=== PATIENT | female | born 1975 | race Caucasian/White ===

== ENCOUNTER 2017-08-10 10:42 | Emergency (ER) | payer BC ==
[2017-08-10 11:17] VITALS: BP 128/71
--- NOTE | 2017-08-10 11:44 | UC ---
Back Pain HPI - HPI Summary HPI Summary: 42 YEAR OLD FEMALE PRESENTS WITH COMPLAINS SEVERE INTRACTABLE BACK PAIN. - History of Current Complaint Chief Complaint: UCBackPain Stated Complaint: BACK PAIN Time Seen by Provider: 08/10/17 11:34 Hx Obtained From: Patient Hx Last Menstrual Period: OVER A YEAR AGO, HAD UTERINE ABLATION Onset/Duration: Sudden Onset Severity Initially: Moderate Severity Currently: Moderate Pain Scale Used: 0-10 Numeric - 7 - Allergies/Home Medications Allergies/Adverse Reactions: Allergies Allergy/AdvReac Type Severity Reaction Status Date / Time Serotonin Reuptake Inhibitors Allergy Fatigue Verified 08/10/17 11:10 Home Medications: Home Medications Cyclobenzaprine TAB* [Flexeril TAB*] 5 mg PO TID PRN 08/10/17 [History Confirmed 08/10/17] Fluticasone Furoate-Vilanterol [Breo Ellipta 200-25 Mcg/INH] 08/10/17 [History] Ibuprofen TAB* [Advil TAB*] 600 mg PO PRN 08/10/17 [History] PMH/Surg Hx/FS Hx/Imm Hx Previously Healthy: Yes - Surgical History Surgical History: None Surgery Procedure, Year, and Place: 1979 T&A, 97 & 00, 2002 L5-S1 discectomy, 09/01 uterine ablation, hysterectomy 01/2017 - Social History Alcohol Use: Rare Substance Use Type: None Smoking Status (MU): Never Smoked Tobacco Type: Cigarettes Amount Used/How Often: quit as of summer Have You Smoked in the Last Year: Yes Review of Systems Constitutional: Negative Skin: Negative Eyes: Negative ENT: Negative Respiratory: Negative Cardiovascular: Negative Gastrointestinal: Negative Genitourinary: Negative Motor: Negative Neurovascular: Negative Musculoskeletal: Other: - LOWER BACK PAIN Neurological: Negative Psychological: Negative All Other Systems Reviewed And Are Negative: Yes Physical Exam Triage Information Reviewed: Yes Vital Signs: Initial Vital Signs Temp 37.0 C 08/10/17 11:12 Pulse 72 08/10/17 11:12 Resp 18 08/10/17 11:12 BP 128/71 08/10/17 11:12 Pulse Ox 100 08/10/17 11:12 Vital Signs Reviewed: Yes Eye Exam: Normal ENT Exam: Normal Dental Exam: Normal Neck exam: Normal Neck: Positive: 1 Respiratory Exam: Normal Cardiovascular Exam: Normal Abdominal Exam: Normal Musculoskeletal: Positive: Other: - LOWER BACK PAIN POINT TENDERNESS L4, L5 Neurological Exam: Normal Psychological Exam: Normal Skin Exam: Normal Back Pain Course/Dx - Differential Dx/Diagnosis Provider Diagnoses: INTRACTABLE LOWER BACK PAIN Discharge - Discharge Plan Condition: Stable Disposition: OTHER Discharge Disposition Comment: PATIENT SUGGESTED TO GO TO THE ER. Patient Education Materials: Low Back Strain (ED), Acute Low Back Pain (ED) Referrals: Emma Alvarez MD [Primary Care Provider] - Additional Instructions: patient suggested to go to ER for intractable back pain.
== END 2017-08-10 12:15 ==
LOC: UCEAST 10:42
DX: M54.9 Dorsalgia, unspecified (principal)
CPT/HCPCS: 99211; G0463

== ENCOUNTER 2017-08-10 12:12 | Emergency (ER) | payer BC ==
[2017-08-10] MEDS ORDERED: Ketorolac INJ* 30 MG/ML 1 ML VIAL IV ONE (13:13)
--- NOTE | 2017-08-10 14:27 | RAD ---
INDICATION: Back and pelvic pain COMPARISON: MRI lumbar spine dated December 08, 2015 TECHNIQUE: Contiguous axial sections were obtained beginning lower thoracic vertebra and continuing through the sacrum. Images were reconstructed in the sagittal and coronal planes. FINDINGS: The vertebra are in normal alignment. No fracture is seen. There is no hyperdense material in the thecal sac to indicate acute hemorrhage. Degenerative changes include loss of intervertebral disc height at L5/S1 where there is endplate sclerosis. There is mild disc protrusion at L3/L4, L4/L5 and L5/S1 that appears to combine with facet arthropathy and thickening of the ligamentum flavum to cause mild degrees of central canal or neural foraminal stenosis. The visualized soft tissues do not exhibit any acute abnormalities. IMPRESSION: Degenerative changes of the lower lumbar spine as described above without acute fracture or dislocation. The degenerative appearance appears worse when compared to the December 08, 2015 MRI lumbar spine. Superior characterization of the lumbar spine can be made with MRI on a nonemergent basis if clinically warranted.
--- NOTE | 2017-08-10 14:51 | ED ---
Dylon Ng Rebecca, scribed for Ashli Calle MD on 08/10/17 at 1306 . Back Pain - HPI Summary HPI Summary: Pt is a 42 y/o F who presents to ED referred from [facility] c/o lumbar back pain. Pt reports she has had multiple back issues, having surgery about 15 years ago. About 6 months ago she had a hysterectomy and has been having "pelvic/coccyx pain" since then. About 1 week ago, the pain worsened and spread to her "sacral/ iliac" region. States that the pain is primarily in the lumbar back with radiation to the pelvis and LLE. Pain is currently moderate, ranked 6/10. Notes intermittent shooting pain. Sx aggravated by sitting and standing up, ranked 10/ 10 with either activity, alleviated by laying down and Cyclobenzaprine. Additionally noted L foot numbness that began this morning. - History of Current Complaint Chief Complaint: EDBackInjuryPain Stated Complaint: BACK/PELVIC PAIN Time Seen by Provider: 08/10/17 12:29 Hx Obtained From: Patient Hx Last Menstrual Period: OVER A YEAR AGO, HAD UTERINE ABLATION Onset/Duration: Still Present, Worse Since - 1 week ago Onset/Duration: Still Present Back Pain Location: Is Discrete @ - Lumbar back, Radiates To - pelvis and LLE Severity Currently: Moderate Pain Intensity: 6 Pain Scale Used: 0-10 Numeric Character: Sharp - Occasoinal Aggravating Symptom(s): Other - Sitting and standing up Alleviating Symptom(s): Other - Laying down, cyclobenzaprine Associated Signs And Symptoms: Positive: Numbness - L foot numbness - Allergies/Home Medications Allergies/Adverse Reactions: Allergies Allergy/AdvReac Type Severity Reaction Status Date / Time Serotonin Reuptake Inhibitors Allergy Fatigue Verified 08/10/17 11:10 PMH/Surg Hx/FS Hx/Imm Hx Endocrine/Hematology History: Denies: Hx Diabetes, Hx Thyroid Disease Cardiovascular History: Reports: Other Cardiovascular Problems/Disorders - HX OF PVC'S Denies: Hx Congestive Heart Failure, Hx Deep Vein Thrombosis, Hx Hypertension , Hx Myocardial Infarction, Hx Pacemaker/ICD Respiratory History: Reports: Hx Asthma, Other Respiratory Problems/Disorders - KNOWN MOLD EXPOSURE Denies: Hx Chronic Obstructive Pulmonary Disease (COPD), Hx Lung Cancer, Hx Pneumonia, Hx Pulmonary Embolism GI History: Denies: Hx Gall Bladder Disease, Hx Gastrointestinal Bleed, Hx Ulcer, Hx Urosepsis History: Denies: Hx Dialysis, Hx Kidney Stones, Hx Renal Disease Musculoskeletal History: Reports: Hx Back Problems - s/p surgery 2002 L3-S1 discectomy Sensory History: Denies: Hx Hearing Aid Neurological History: Denies: Hx Dementia, Hx Migraine, Hx Seizures, Hx Transient Ischemic Attacks (TIA) Psychiatric History: Reports: Hx Anxiety, Hx Depression Denies: Hx Panic Disorder - Cancer History Hx Chemotherapy: No Hx Radiation Therapy: No - Surgical History Surgery Procedure, Year, and Place: 1979 T&A, 97 & 00, 2002 L5-S1 discectomy, 09/01 uterine ablation, hysterectomy 01/2017 Infectious Disease History: No Infectious Disease History: Reports: Hx Shingles - AGE 13 Denies: History Other Infectious Disease, Traveled Outside the [place] in Last 30 Days - Family History Known Family History: Negative: Diabetes - Social History Alcohol Use: Rare Substance Use Type: Reports: None Smoking Status (MU): Never Smoked Tobacco Type: Cigarettes Amount Used/How Often: quit as of summer Have You Smoked in the Last Year: Yes Review of Systems Negative: Fever Positive: Arthralgia - Lumbar back pain with radiation to the pelvis and LLE Positive: Numbness - L foot numbness All Other Systems Reviewed And Are Negative: Yes Physical Exam - Summary Physical Exam Summary: General: Well appearing, no pain distress Skin: Warm, Skin Color Reflects Adequate Perfusion, Dry Eyes: EOMI, DENTON ENT: Pharynx normal, TMs normal Neck: Supple, nontender Respiratory: CTA, breath sounds present, no rhonchi, no wheezes, no rales Cardiovascular: RRR, no murmur, no rub, no gallop Abdomen: Soft, nontender, Non-distended, no guarding, no rebound Bowel: Present Musculoskeletal: GLENN, No edema, Tender at L4-L5, over the glute on the left side, normal great toe raise bilaterally Neuro: Sensory/motor intact, A&Ox3, CN intact 2-12 Psych: Affect/mood appropriate Triage Information Reviewed: Yes Vital Signs On Initial Exam: Initial Vitals Temp Pulse Resp BP Pulse Ox 98.2 F 79 15 126/79 99 08/10/17 12:15 08/10/17 12:15 08/10/17 12:15 08/10/17 12:15 08/10/17 12:15 Vital Signs Reviewed: Yes - [place] Coma Scale Coma Scale Total: 15 Diagnostics - Vital Signs Vital Signs Temp Pulse Resp BP Pulse Ox 08/10/17 12:15 98.2 F 79 15 126/79 99 - Laboratory Lab Statement: Any lab studies that have been ordered have been reviewed, and results considered in the medical decision making process. - CT L-Spine CT CT Interpretation: Positive (See Comments) - Degenerative changes of the lower lumbar spine as described above without acute fracture or dislocation. The degenerative appearance appears worse when compared to the December 08, 2015 MRI lumbar spine. Superior characterization of the lumbar spine can be made with MRI on a nonemergent basis if clinically warranted. ED physician reviewed radiology report and agrees. CT Interpretation Completed By: Radiologist Back Pain Course/Dx - Course Course Of Treatment: 42 yo female with previous history of lumbar spine issues now with parasthesias on left lateral distal foot dorsum and over ball of foot with increased pain over the last few days. Pt's ct shows central canal stenosis she does not want narcotics, her neuro exam is normal she is willing to try a medrol dose pack for the inflammation and will f/u with pmd - Diagnoses Provider Diagnoses: Spinal stenosis Discharge - Discharge Plan Condition: Stable Disposition: HOME Prescriptions: Methylprednisolone [Medrol Dosepak 4 MG*] 0 mg PO .SEE PASCALE INSTRUCTION #1 tab Naproxen [Naprosyn 500 mg] 500 mg PO BID PRN #10 tab PRN Reason: Pain Tramadol 50 MG # 6 TAB PREPAK 50 mg PO Q4HR PRN #6 tab MDD 6 PRN Reason: Pain Patient Education Materials: Lumbar Spinal Stenosis (ED) Referrals: Emma Alvarez MD [Primary Care Provider] - 3 Days The documentation as recorded by the Dylon dickens Rebecca accurately reflects the service I personally performed and the decisions made by me, Ashli Calle MD.
[2017-08-10] MEDS ORDERED: Ketorolac INJ* 60 MG/2 ML VIAL ONE (14:59)
[2017-08-10] MEDS ORDERED: Ketorolac INJ* 60 MG/2 ML VIAL IM ONE (15:02)
[2017-08-10 15:12] VITALS: BP 96/62
== END 2017-08-10 15:11 | disposition home or self-care (01) ==
LOC: ED 12:12
DX: M48.00 Spinal stenosis, site unspecified (principal); M54.5 Low back pain; R20.0 Anesthesia of skin
CPT/HCPCS: 72131; 96372; 96374; 99282; J1885

== ENCOUNTER 2019-03-13 06:36 | Emergency (ER) | payer BC ==
[2019-03-13] MEDS ORDERED: NS 0.9% 1000 ML** 1,000 ML IV ONE (06:55)
[2019-03-13] MEDS ORDERED: Ondansetron INJ* 2 MG/ML VIAL IV ONE (06:55)
[2019-03-13] MEDS ORDERED: Meclizine TAB* 12.5 MG PO ONE ×2 (06:55→11:41)
--- NOTE | 2019-03-13 06:58 | ED ---
Dizziness - HPI Summary HPI Summary: 43-year-old female presents with the vertigo since this morning at 4. States it is intermittent. She states that she once the room starts spinning. she is not able to ambulate straighten. she vomits after the vertigo. She has a dull pressure in her head. She has a history of vertigo. 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 She is not able to lay flat due to the symptoms. She states that symptoms worsen with movement. She still she get occasionally blurry vision that has been coming going. She denies any diarrhea. No bowel pain. No chest pain shortness of breath. no chest pain or sob. no fevers. Has history asthma. she states she is leaning towards the left - History Of Current Complaint Chief Complaint: EDDizziness Stated Complaint: VERTIGO/VOMITING PER PT Time Seen by Provider: 03/13/19 06:47 - Allergies/Home Medications Allergies/Adverse Reactions: Allergies Allergy/AdvReac Type Severity Reaction Status Date / Time latex Allergy Itching Verified 03/13/19 06:40 Serotonin 5HT-3 Antagonists Allergy Fatigue Verified 03/13/19 08:34 ANESTHESIA Allergy Vomiting Uncoded 03/13/19 06:40 Home Medications: Home Medications DULoxetine DR CAP* [Cymbalta CAP*] 20 mg PO DAILY 03/13/19 [History Confirmed ] Fluticasone/Vilanterol MDI(NF) [Breo Ellipta MDI 200/25(NF)] 1 puff INH BID [History Confirmed 03/13/19] Melatonin (NF) 3 mg PO BEDTIME PRN 03/13/19 [History Confirmed 03/13/19] Naproxen TAB* [Naprosyn 250 mg TAB*] 500 mg PO BID PRN 03/13/19 [History Confirmed 03/13/19] PMH/Surg Hx/FS Hx/Imm Hx Endocrine/Hematology History: Denies: Hx Diabetes, Hx Thyroid Disease Cardiovascular History: Reports: Other Cardiovascular Problems/Disorders - HX OF PVC'S Denies: Hx Congestive Heart Failure, Hx Deep Vein Thrombosis, Hx Hypertension , Hx Myocardial Infarction, Hx Pacemaker/ICD Respiratory History: Reports: Hx Asthma, Other Respiratory Problems/Disorders - KNOWN MOLD EXPOSURE Denies: Hx Chronic Obstructive Pulmonary Disease (COPD), Hx Lung Cancer, Hx Pneumonia, Hx Pulmonary Embolism GI History: Denies: Hx Gall Bladder Disease, Hx Gastrointestinal Bleed, Hx Ulcer, Hx Urosepsis History: Denies: Hx Dialysis, Hx Kidney Stones, Hx Renal Disease Musculoskeletal History: Reports: Hx Back Problems - s/p surgery 2002 L3-S1 discectomy Sensory History: Denies: Hx Hearing Aid Neurological History: Denies: Hx Dementia, Hx Migraine, Hx Seizures, Hx Transient Ischemic Attacks (TIA) Psychiatric History: Reports: Hx Anxiety, Hx Depression, Hx Panic Disorder - Cancer History Hx Chemotherapy: No Hx Radiation Therapy: No - Surgical History Surgery Procedure, Year, and Place: 1979 T&A, 97 & 00, 2002 L5-S1 discectomy, 09/01 uterine ablation, hysterectomy 01/2017 Infectious Disease History: No Infectious Disease History: Reports: Hx Shingles - AGE 13 Denies: History Other Infectious Disease, Traveled Outside the [place] in Last 30 Days - Family History Known Family History: Negative: Diabetes - Social History Alcohol Use: Occasionally Substance Use Type: Reports: None Smoking Status (MU): Former Smoker Type: Cigarettes Amount Used/How Often: quit as of summer Have You Smoked in the Last Year: Yes Review of Systems Negative: Fever Negative: Chest Pain Negative: Shortness Of Breath Positive: Vomiting, Nausea Neurological: Other - dizziness Positive: Headache All Other Systems Reviewed And Are Negative: Yes Physical Exam Triage Information Reviewed: Yes Vital Signs On Initial Exam: Initial Vitals Temp Pulse Resp BP Pulse Ox 97.3 F 73 16 135/78 100 03/13/19 06:37 03/13/19 06:37 03/13/19 06:37 03/13/19 06:37 03/13/19 06:37 Vital Signs Reviewed: Yes Appearance: Positive: Well-Appearing Skin: Positive: Warm, Dry Head/Face: Positive: Normal Head/Face Inspection Eyes: Positive: Normal, EOMI, DENTON, Conjunctiva Clear, Other: - nystagmus present ENT: Positive: Normal ENT inspection, Pharynx normal, TMs normal Respiratory/Lung Sounds: Positive: Clear to Auscultation, Breath Sounds Present Cardiovascular: Positive: Normal, RRR Abdomen Description: Positive: Nontender, Soft Bowel Sounds: Positive: Present Musculoskeletal: Positive: Normal Neurological: Positive: Sensory/Motor Intact, Alert, Oriented to Person Place, Time, CN Intact II-III, [place]-Castillo [place] Test - positive to left Psychiatric: Positive: Normal Diagnostics - Vital Signs Vital Signs Temp Pulse Resp BP Pulse Ox 03/13/19 06:56 70 118/82 99 03/13/19 06:37 97.3 F 73 16 135/78 100 - Laboratory Result Diagrams: 03/13/19 07:27 03/13/19 07:27 Lab Statement: Any lab studies that have been ordered have been reviewed, and results considered in the medical decision making process. - CT brain CT Interpretation Completed By: Radiologist Summary of CT Findings: IMPRESSION: No intracranial mass or hemorrhage is noted. - EKG No standard instances Cardiac Rate: NL EKG Rhythm: Sinus Rhythm Summary of EKG Findings: sinus rhythm Re-Evaluation - Re-Evaluation First Eval Re-Evaluation Time: 07:57 Comment: still dizzy Second Eval Re-Evaluation Time: 10:06 Comment: performed gilda castillo pike and positive to the left only, unable to tolerate arleen maneuver Third Eval Re-Evaluation Time: 11:02 Comment: states okay as long as doesnt move Fourth Eval Re-Evaluation Time: 11:47 Comment: still symptomatic will try one more meclizine Fifth Eval Comment: patient is comfortable going home Dizzy Course/Dx - Course Course Of Treatment: 43-year-old female presents with the vertigo since this morning at 4. States it is intermittent. She states that she once the room starts spinning. she is not able to ambulate straighten. she vomits after the vertigo. She has a dull pressure in her head. She has a history of vertigo. 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 She is not able to lay flat due to the symptoms. She states that symptoms worsen with movement. She still she get occasionally blurry vision that has been coming going. She denies any diarrhea. No bowel pain. No chest pain shortness of breath. no chest pain or sob. no fevers. Has history asthma. on exam has normal neuro exam. has nystagmus present. lab work within normal limit. ekg sinus rhythm. ct brain normal. Patient was given multiple rounds of nausea and vertigo medication and continues to have vertigo. Gilda-Hallpike is positive to the left and patient almost vomited with it. Patient was attempted to walk and was very dizzy and requires some assistance. Discussed case with Dr. Quezada says the patient will have to be half-way admit. Discuss with patient and patient feels comfortable going home. Gave nausea medication and vertigo medication. Gave referral to PT and ENT. gave instruction of maneuvered to go at home. told symptoms get worse return. Patient understands agrees with plan. - Diagnoses Differential Diagnosis/HQI/PQRI: Benign Paroxysmal Positional Vertigo, CVA, Metabolic Abnormality Provider Diagnoses: Vertigo Discharge - Sign-Out/Discharge Documenting (check all that apply): Patient Departure Patient Received Moderate/Deep Sedation with Procedure: No - Discharge Plan Condition: Good Disposition: HOME Prescriptions: Meclizine TAB* [Antivert 12.5 TAB*] 25 mg PO TID #21 tab Metoclopramide TAB* [Reglan TAB*] 10 mg PO Q6H #12 tab Ondansetron ODT TAB* [Zofran 4 MG Odt TAB*] 4 mg PO Q6H PRN #20 tab.odt PRN Reason: Nausea Patient Education Materials: Benign Paroxysmal Positional Vertigo (ED) [place] [facility] [place],PT [Medical Doctor] - Emma Alvarez MD [Medical Doctor] - Brady Deleon MD [Medical Doctor] - Additional Instructions: Take meclizine up to 3 tablets a day for vertigo take zofran up to two tablets every 6 hours as needed for nausea take reglan every 6 hours as needed for nausea Drink plenty of fluids Follow up with ENT or PT Return to ED if develop any new or worsening symptoms - Billing Disposition and Condition Condition: GOOD Disposition: Home
[2019-03-13 07:39] LABS: ABS Lymphocytes 1.1 10^3/ul (1.0-4.8); ABS Monocytes 0.5 10^3/ul (0-0.8); ABS Neutrophils 4.9 10^3/ul (1.5-7.7); Eosinophil % 0.5 %; Hematocrit 41 % (35-47); Hemoglobin 13.8 g/dL (12.0-16.0); Lymphocyte % 16.2 %; Mean Corpuscular HGB Conc 34 g/dL (31-36); Mean Corpuscular Hemoglobin 30 pg (27-31); Mean Corpuscular Volume 90 fL (80-97); Mean Platelet Volume 7.3 fL (7.4-10.4); Platelet Count 243 10^3/uL (150-450); Red Blood Count 4.56 10^6 /uL (3.70-4.87); Red Cell Distribution Width 13 % (10.5-15); White Blood Count 6.5 10^3/uL (3.5-10.8)
[2019-03-13 08:03] LABS: Albumin 4.2 g/dL (3.2-5.2); Albumin/Globulin Ratio 1.7 (1-3); BUN/Creatinine Ratio 16.4 (8-20); Calcium 9.4 mg/dL (8.6-10.3); EGFR African American 116.2 (>60); EGFR Non-African American 96.1 (>60); Globulin 2.5 g/dL (2-4); Magnesium 2.2 mg/dL (1.9-2.7); Potassium 3.7 mmol/L (3.5-5.0); Total Bilirubin 0.4 mg/dL (0.2-1.0); Total Protein 6.7 g/dL (6.4-8.9)
[2019-03-13] MEDS ORDERED: Lorazepam PYXIS KEY PRN ×2 (08:12→10:06)
[2019-03-13] MEDS ORDERED: LORazepam INJ* 2 MG/ML 1 ML VIAL IV PUSH ONE ×2 (08:12→10:06)
[2019-03-13] MEDS ORDERED: Ketorolac INJ* 30 MG/ML 1 ML VIAL IV PUSH ONE (08:38)
[2019-03-13] MEDS ORDERED: Lorazepam PYXIS KEY ONE (08:54)
[2019-03-13 09:22] LABS: TSH (Thyroid Stimulating Horm) 1.84 mcIU/mL (0.34-5.60)
[2019-03-13] MEDS ORDERED: Metoclopramide IV* 5 MG/ML 2 ML VIAL IV SLOW PU ONE (11:01)
[2019-03-13 13:00] LABS: Urine Appearance Clear; Urine Bilirubin Negative (Negative); Urine Blood Negative (Negative); Urine Color Straw; Urine Glucose Negative (Negative); Urine Ketones 1+ (Negative); Urine Nitrite Negative (Negative); Urine Protein Negative (Negative); Urine Specific Gravity 1.009 (1.010-1.030); Urine Urobilinogen Negative (Negative)
[2019-03-13 14:31] VITALS: BP 111/66
== END 2019-03-13 14:30 | disposition home or self-care (01) ==
LOC: ED 06:36
DX: R42 Dizziness and giddiness (principal); J45.909 Unspecified asthma, uncomplicated; F41.9 Anxiety disorder, unspecified; F32.9 Major depressive disorder, single episode, unspecified; Z88.4 Allergy status to anesthetic agent; Z91.040 Latex allergy status; Z79.899 Other long term (current) drug therapy; Z87.891 Personal history of nicotine dependence
CPT/HCPCS: 36415; 70450; 80053; 81003; 83605; 83735; 84443; 84484; 85025; 93005; 96361; 96374; 96375; 96376; 99284; A9270-GY; J1885; J2060; J2405; J2765

== ENCOUNTER 2019-09-27 09:50 | Emergency (ER) | payer BC ==
--- OUTSIDE RECORDS SUMMARY | 2019-09-27 09:58 | XMS REPORT | Continuity of Care Document ---
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 Onset: 10/30/2011 Depressive disorder Loida Jesus N.P. Onset: 02/01/2012 Premature beats Chencho Rodriguez M.D., [facility], Onset: 02/08/2016 FASNC Chest pain Chencho Rodriguez M.D., [facility], Onset: 02/08/2016 FASNC Palpitations Chencho Rodriguez M.D., [facility], Onset: 02/08/2016 FASNC Headache Keyshawn Feliz M.D. Onset: 10/17/2018 Syringomyelia and syringobulbia Keyshawn Feliz M.D. Onset: 10/17/2018 Chiari malformation Keyshawn Feliz M.D. Onset: 10/17/2018 Social History Type Date Description Comments Sex Unknown Tobacco Use Start: Unknown End: Former Cigarette Smoker Unknown Smoking Status Reviewed: 09/15/19 Former Cigarette Smoker ETOH Use Denies alcohol use Tobacco Use Start: Unknown End: Patient is a former Quit 2 yrs ago Unknown smoker Recreational Drug Use Denies Drug Use Exercise Type/Frequency Does not exercise Allergies, Adverse Reactions, Alerts Active Allergies Reaction Severity Comments Date Serotonin Reuptake Inhibitors (SSRIs) FATIGUE 10/22/2012 Cymbalta 10/22/2012 Prozac 10/22/2012 Wellbutrin 10/22/2012 Environmental 02/08/2016 Inactive Allergies No Known Drug Allergy 10/27/2010 Medications Active Medications SIG Qnty Indications Ordering Date Provider Triamcinolone apply to dry skin 60ml R21 Loida Jesus, 08/13/2019 Acetonide once or twice N.P. 0.1% Lotion daily Fluconazole one by mouth every 3tabs J01.90 Loida Ann Marie, 08/13/2019 150mg 3 days for 3 doses N.P. Tablets Meclizine HCL 1 tablet every 8 30tabs H81.10 Loida Jesus, 03/19/2019 25mg hours as needed N.P. Tablets for vertigo Zofran Odt Q6H as needed 20tabs Unknown 03/13/2019 4mg Tablets Dispers Fluticasone 2 sprays each 16units H92.02 Loida Jesus, 07/18/2018 Propionate nostril daily as N.P. 50mcg/Act needed Suspension Naproxen take 1 tablet 60tabs M54.5 Loida Jesus, 08/13/2017 500mg twice a day as N.P. Tablets needed Ventolin HFA 1 to 2 inhalations 1inhaler Emma 12/31/2011 every 4 hours as Asim Alvarez 108(90Base) mcg/ac needed Aerosol Montelukast Sodium 1 po qd 90tabs Unknown 10mg Tablets Breo Ellipta Unknown 200-25mcg/Inh Aerosol Alexus Allergy As needed Unknown 60mg Tablets Duloxetine HCL once daily Loida Jesus, 30mg N.P. Caps Kalani Rankin 0.5mg MD Arias Tablets History Medications Amoxicillin/Clavulanate one tablet 20tabs J01.90 Loida Jesus, 2018 - Potassium by mouth N.P. 08/23/2019 875-125mg Tablets twice daily for 10 days Azithromycin two tabs day 6tabs H69.90 Loida Jesus, 06/10/2019 - 250mg Tablets one, one N.P. 06/20/2019 daily till gone Clotrimazole/Betamethasone apply twice 15gm R21 Loida Cuiraji, 03/19/2019 - Dipropionate daily to N.P. 06/08/2019 1-0.05% Cream three times daily Medications Administered in Office Medication SIG Qnty Indications Ordering Provider Date Depomedrol 80MG Cierra Hernandez M.D. 09/02/2015 Injection Immunizations CPT Code Status Date Vaccine Lot # [id number] Given 05/25/2013 Measles Mumps And Rubella MMR [id number] Given 12/31/2011 Pneumonia Vaccine [id number] Given 12/31/2011 Tdap - Tetanus/Diptheria/Acellular Pertussis [id number] Vital Signs Date Vital Result Comment 09/15/2019 8:13am Height 67.5 inches 5'7.50" Weight 243.00 lb Heart Rate 76 /min BP Systolic 118 mmHg BP Diastolic 78 mmHg Respiratory Rate 18 /min Body Temperature 98.0 F Pain Level 4 BMI (Body Mass Index) 37.5 kg/m2 09/07/2019 4:07pm Height 67.5 inches 5'7.50" Weight 245.00 lb Heart Rate 85 /min BP Systolic 112 mmHg BP Diastolic 78 mmHg BMI (Body Mass Index) 37.8 kg/m2 Results Test Acquired Date Facility Test Result H/L Range Note Laboratory test 09/08/2019 [facility] Musk AB <pending> finding [address] [place] [address] [phone] Laboratory test 09/08/2019 [facility] Methylmalonic Acid < pending> finding [facility] [place] [address] [phone] Free T4 (Free Thyroxine) 0.91 ng/dL Normal 0.61-1.12 Comp Metabolic 09/08/2019 [facility] Sodium 137 mmol/L Normal 135-145 [place] [address] [phone] Potassium 4.1 mmol/L Normal 3.5-5.0 Chloride 105 mmol/L Normal 101-111 Co2 Carbon Dioxide 27 mmol/L Normal 22-32 Anion Gap 5 mmol/L Normal 2-11 Glucose 72 mg/dL Normal 70-100 Blood Urea Nitrogen 15 mg/dL Normal 6-24 Creatinine 0.75 mg/dL Normal 0.51-0.95 BUN/Creatinine Ratio 20.0 Normal 8-20 Calcium 9.7 mg/dL Normal 8.6-10.3 Total Protein 6.5 g/dL Normal 6.4-8.9 Albumin 4.1 g/dL Normal 3.2-5.2 Globulin 2.4 g/dL Normal 2-4 Albumin/Globulin Ratio 1.7 Normal 1-3 Total Bilirubin 0.40 mg/dL Normal 0.2-1.0 Alkaline Phosphatase 56 U/L Normal 34-104 Alt 23 U/L Normal 7-52 Ast 22 U/L Normal 13-39 Egfr Non- 83.9 >60 Egfr 101.6 >60 1 Laboratory test 09/08/2019 [facility] Nuclear AB (Naomi) <pending > [place] [address] [phone] Lyme Screen W/ Reflex To WB Negative Negative Laboratory 09/08/2019 [facility] TSH (Thyroid 1.21 Normal 0.34 -5.[address] Stim Horm) mcIU/[place] [address] [phone] Vitamin B12 250 pg/mL Normal 180-914 2 CBC Auto 09/08/2019 [facility] White Blood 5.0 10^3/uL Normal 3.5-10.[address] [place] [address] [phone] Red Blood Count 4.69 10^6/uL Normal 3.70-4.87 Hemoglobin 14.2 g/dL Normal 12.0-16.0 Hematocrit 42 % Normal 35-47 Mean Corpuscular Volume 91 fL Normal 80-97 Mean Corpuscular Hemoglobin 30 pg Normal 27-31 Mean Corpuscular HGB Conc 33 g/dL Normal 31-36 Red Cell Distribution Width 13 % Normal 10-15 Platelet Count 260 10^3/uL Normal 150-450 Mean Platelet Volume 7.4 fL Normal 7.4-10.4 Abs Neutrophils 3.0 10^3/uL Normal 1.5-7.7 Abs Lymphocytes 1.6 10^3/uL Normal 1.0-4.8 Abs Monocytes 0.4 10^3/uL Normal 0-0.8 Abs Eosinophils 0.0 10^3/uL Normal 0-0.6 Abs Basophils 0.0 10^3/uL Normal 0-0.2 Abs Nucleated RBC 0.0 10^3/uL Granulocyte % 58.8 % Lymphocyte % 31.7 % Monocyte % 8.5 % Eosinophil % 0.1 % Basophil % 0.9 % Nucleated Red Blood Cells % 0.0 Laboratory test 09/08/2019 [facility] Ferritin 30.4 ng/mL Normal 11-[address] [place] [address] [phone] Laboratory test 08/20/2019 [facility] C Reactive 1.10 mg/L Normal <8.[address] [place] [address] [phone] Erythrocyte Sed Rate 16 mm/Hr Normal 0-19 Cyclic Citrullinated Pep Igg <15.6 U 3 Rheumatoid Factor < 10 IU/mL Normal <15 Vitamin D Total 25(Oh) 33.9 ng/mL Normal 20-50 4 Tick-Borne Panel 08/20/2019 [facility] Babesia Negative Negative PCR Blood [address] [place] [address] [phone] Babesia ducani Negative Negative Babesia divergens/Mo-1 Negative Negative 5 Anaplasma phagocytophilum Negative Negative Ehrlichia chaffeensis Negative Negative Ehrlichia ewingii/canis Negative Negative Ehrlichia muris eauclairensis Negative Negative 6 B. miyamotoi PCR, B Negative Negative 7 Laboratory test 08/20/2019 [facility] Miscellaneous Test See Comment [address] [place] [address] [phone] Urine Culture And 08/13/2019 [facility] Urine Culture SEE RESULT [address] [place] [address] [phone] Ua Routine 08/13/2019 [facility] Ua Specific 1.000 [place] Ua PH 8 Ua Color yellow Ua Appera clear Ua WBC trace Ua Protein negative Ua Glucose normal Ua Ketones negative Ua Bilirubin negative Ua Urobilinogen normal Ua Nitrite negative Ua Occult Blood negative 1 Because ethnic data is not always readily available, this report includes an eGFR for both -Americans and non- Americans. The National Kidney Disease Education Program (NKDEP) does not endorse the use of the MDRD equation for patients that are not between the ages of 18 and 70, are , have extremes of body size, muscle mass, or nutritional status, or are non- or non-. According to the National Kidney Foundation, irrespective of diagnosis, the stage of the disease is based on the level of kidney function: Stage Description GFR(mL/min/1.73 m(2)) 1 Kidney damage with normal or decreased GFR 90 2 Kidney damage with mild decrease in GFR 60-89 3 Moderate decrease in GFR 30-59 4 Severe decrease in GFR 15-29 5 Kidney failure <15 (or dialysis) 2 Normal Range 180 to 914 Indeterminate Range 145 to 180 Deficient Range <145 3 REFERENCE VALUE <20.0 (Negative) Test Performed by: [facility] [address] [place] [address] Adjusto Writer Operator: Dave Red M.D. Ph.D.; CLIA# [id number] 4 Total 25-Hydroxyvitamin D2 and D3 (25-OH-VitD) <10 ng/mL (severe deficiency) 10-19 ng/mL (mild to moderate deficiency) 20-50 ng/mL (optimum levels) 51-80 ng/mL (increased risk of hypercalciuria) >80 ng/mL (toxicity possible) 5 ADDITIONAL INFORMATION This test was developed and its performance characteristics determined by [facility] in a manner consistent with CLIA requirements. This test has not been cleared or approved by the U.S. Food and Drug Administration. 6 ADDITIONAL INFORMATION This test was developed and its performance characteristics determined by [facility] in a manner consistent with CLIA requirements. This test has not been cleared or approved by the U.S. Food and Drug Administration. 7 ADDITIONAL INFORMATION This test was developed and its performance characteristics determined by [facility] in a manner consistent with CLIA requirements. This test has not been cleared or approved by the U.S. Food and Drug Administration. Test Performed by: [facility] - [address] [address] Adjusto Writer Operator: Daev Red M.D. Ph.D.; CLIA# [id number] 8 Test Result Flag Unit RefValue Lyme Disease Serology, S Negative Negative No evidence of antibodies to B. burgdorferi detected. False negative results may occur in recently infected patients (<=2 weeks) due to low or undetectable antibody levels to B. burgdorferi. If recent exposure is suspected, a second sample should be collected and tested in 2-4 weeks. Test Performed by: [facility] - [address] [address] Adjusto Writer Operator: Dave Red M.D. Ph.D.; CLIA# [id number] 9 SEE RESULT BELOW Name: TARA CALL : [address]: Loida Jesus NP Acct: [id number] Unit: [id number] AGE: 44 Location: [facility] Re08/13/19 SEX: F Status: REG REF SPEC: [id number] ERIK: 08/13/[address]: Loida Jesus NP REQ: [id number] RECD: 08/13/19 STATUS: COMP _ SOURCE: URINE SPDESC: ORDERED: Urine Culture COMMENTS: [id number] Urine Source: Random Procedure Result Reported Site Urine Culture Final 08/14/19- 1227 ML No Growth (<1,000 CFU/mL) * ML - Main Lab . END OF REPORT DEPARTMENT OF PATHOLOGY, [address] [place] [address] David Noe M.D. Director TED # [id number] Procedures Date Code Description Status 06/02/2019 74080945 Mammogram Completed 12/09/2018 [id number] Mammogram Completed 09/06/2015 [id number] Mammogram Completed 07/12/2009 [id number] Mammogram Completed Medical Devices Description No Information Available Encounters Type Date Location Provider Dx Diagnosis Office Visit 09/07/2019 [facility] Andres Villa, R53.83 Other fatigue 4:00p [facility] N.P. R51 Headache H81.10 Benign paroxysmal vertigo, unspecified ear R20.2 Paresthesia of skin Office Visit 08/28/2019 3:20p [facility] Internal Loida Jesus, M77.01 Medial Medicine - N.P. epicondylitis, right Ccmob elbow R53.83 Other fatigue Office Visit 08/13/2019 11:00a [facility] Internal Loida Jesus, R21 Rash and other Medicine - Ccmob N.P. nonspecific skin eruption J01.90 Acute sinusitis, unspecified R39.15 Urgency of urination R35.0 Frequency of micturition Z68.37 Body mass index (BMI) 37.0-37.9, adult Office Visit 06/10/2019 1:40p [facility] Internal Loida Jesus, H69.90 Unspecified Medicine - N.P. Eustachian tube Ccmob disorder, unspecified ear J01.90 Acute sinusitis, unspecified Office Visit 06/09/2019 12:00p [facility] Andres Villa R51 Headache [facility] N.P. R42 Dizziness and giddiness Office Visit 03/19/2019 9:40a [facility] Internal Loida Jesus, H81.10 Benign paroxysmal Medicine - N.P. 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 09/07/2019 R51 Headache Andres Villa, N.P. 09/07/2019 H81.10 Benign paroxysmal vertigo, unspecified ear Andres Villa N.P. 09/07/2019 R20.2 Paresthesia of skin Adnres Villa N.P. 08/28/2019 M77.01 Medial epicondylitis, right elbow Loida Jesus, N.P. 08/28/2019 R53.83 Other fatigue Loida Varn, N.P. 08/13/2019 R21 Rash and other nonspecific skin eruption Loida Cuin, N.P. 08/13/2019 J01.90 Acute sinusitis, unspecified Loida Basilian, N.P. 08/13/2019 R39.15 Urgency of urination Loida Jesus, N.P. 08/13/2019 R35.0 Frequency of micturition Loida Basilian, N.P. 08/13/2019 Z68.37 Body mass index (BMI) 37.0-37.9, adult Loida Jseus, N.P. 06/10/2019 H69.90 Unspecified Eustachian tube disorder, Loida Basilian, N.P. unspecified ear 06/10/2019 J01.90 Acute sinusitis, unspecified Loida Jesus, N.P. 06/09/2019 R51 Headache Andres Villa, N.P. 06/09/2019 R42 Dizziness and giddiness Andres Villa, N.P. 03/19/2019 H81.10 Benign paroxysmal vertigo, unspecified ear Loida Jesus, N.P. 03/19/2019 R21 Rash and other nonspecific skin eruption Loida Jesus, N.P. Plan of Treatment Future Appointment(s):10/27/2019 8:45 am - Carlos Gallagher MD at [facility]11/23/2019 4:00 pm - Andres Villa N.Jackie at [facility]09/24/2019 10:20 am - Farhad Bray MD at [facility] Rcallcuetnf62/26/2019 - Carlos Gallagher MDG56.11 Other lesions of median nerve, right upper limbNew Therapy:Physical TherapyFollow up:Follow up: 6 qshbvW58.01 Carpal tunnel syndrome, right upper limbNew Therapy:Physical AvkxzvlB62.21 Lesion of ulnar nerve, right upper limbNew Therapy:Physical Therapy Functional Status Description No Information Available Mental Status Description No Information Available Referrals Refer to Dr Reason for Referral Status Appt Date Carlos Gallagher MD Patient with right elbow pain, worse with Sent 2018 activity. Referred for evaluation and treatment. [address] [place] [address] [phone] Nikia Rao MD Patient with pruritic rash, referred for Sent 09/24/2019 evaluation and treatment. [address] [facility], [place] [address] [phone] [facility] Patient with BMI over 37 has tried Sent 11/2018 multiple diets and has not been able to lose weight. She is interested in bariatric surgery. Is referred for evaluation. Thank you for seeing this very pleasant patient. [address] [facility] [address] [place] [address] [phone]
--- OUTSIDE RECORDS SUMMARY | 2019-09-27 09:58 | XMS REPORT | Continuity of Care Document ---
:1975 External Reference #:[id number] Author Name Andres Villa N.P. (transmitted by agent of provider Toby Ruiz) Address [address] [facility], [place] [address] Care Team Providers Name Role Phone Yuki Carmichael MD - Obstetrics & Care Team Information Retail Analytics Manager Gynecology Emma Alvarez MD - Internal Care Team Information Retail Analytics Manager [phone] Medicine Problems Active Problems Provider Date Asthma without status asthmaticus Nasrin Cervantes M.D. Onset: 10/30/2011 Depressive disorder Loida Jesus N.P. Onset: 02/01/2012 Premature beats Chencho Rodriguez M.D., [facility], Onset: 02/08/2016 FASNC Chest pain Chencho Rodriguez M.D., [facility], Onset: 02/08/2016 FASNC Palpitations Chencho Rodriguez M.D., [facility], Onset: 02/08/2016 FASNC Headache Keyshawn Feliz M.D. Onset: 10/17/2018 Syringomyelia and syringobulbia Keyshawn Feliz M.D. Onset: 10/17/2018 Chiari malformation Keyshawn Feliz M.D. Onset: 10/17/2018 Social History Type Date Description Comments Sex Unknown Tobacco Use Start: Unknown End: Former Cigarette Smoker Unknown Smoking Status Reviewed: 09/07/19 Former Cigarette Smoker ETOH Use Denies alcohol [...] apply to dry skin 60ml R21 Loida Ann Marie, 08/13/2019 Acetonide once or twice N.P. 0.1% Lotion daily Fluconazole one by mouth every 3tabs J01.90 Loida Ann Marie, 08/13/2019 150mg 3 days for 3 doses N.P. Tablets Meclizine HCL 1 tablet every 8 30tabs H81.10 Loida Ann Marie, 03/19/2019 25mg hours as needed N.P. Tablets for vertigo Zofran Odt Q6H as needed 20tabs Unknown 03/13/2019 4mg Tablets Dispers Fluticasone 2 sprays each 16units H92.02 Loida Ann Marie, 07/18/2018 Propionate nostril daily as N.P. 50mcg/Act needed Suspension Naproxen take 1 tablet 60tabs M54.5 Loida Jesus, 08/13/2017 500mg twice a day as N.P. Tablets needed Ventolin HFA 1 to 2 inhalations 1inhbatool Carter 12/31/2011 every 4 hours as Asim Alvarez 108(90Base) mcg/ac needed Aerosol Lorazepam Kalani Rodriguez 0.5mg MD Arias Tablets Duloxetine HCL once daily Loida Jesus, 30mg N.P. Caps DR Char Vaughan Allergy As needed Unknown 60mg Tablets Breo Ellipta Unknown 200-25mcg/Inh Aerosol Montelukast Sodium 1 po qd 90tabs Unknown 10mg Tablets History Medications Amoxicillin/Clavulanate one tablet 20tabs J01.90 Loida Jesus, 2018 - Potassium by mouth N.P. 08/23/2019 875-125mg Tablets twice daily for 10 days Azithromycin two tabs day 6tabs H69.90 Loida Jesus, 06/10/2019 - 250mg Tablets one, one N.P. 06/20/2019 daily till gone Clotrimazole/Betamethasone apply twice 15gm R21 Loida Jesus, 03/19/2019 - Dipropionate daily to N.P. 06/08/2019 1-0.05% Cream three times daily Reglan Q6H 12tabs Unknown 03/13/2019 - 10mg Tablets 06/08/2019 Antivert Three Times 21tabs Unknown 03/13/2019 - Repack Daily 03/19/2019 12.5mg Tablets Medications Administered in Office Medication SIG Qnty Indications Ordering Provider Date Depomedrol 80MG Cierra Hernandez M.D. 09/02/2015 Injection Immunizations CPT Code Status Date Vaccine Lot # [id number] Given 05/25/2013 Measles Mumps And Rubella MMR [id number] Given 12/31/2011 Pneumonia Vaccine [id number] Given 12/31/2011 Tdap - Tetanus/Diptheria/Acellular Pertussis [id number] Vital Signs Date Vital Result Comment 09/07/2019 4:07pm Height 67.5 inches 5'7.50" Weight 245.00 lb Heart Rate 85 /min BP Systolic 112 mmHg BP Diastolic 78 mmHg BMI (Body Mass Index) 37.8 kg/m2 08/28/2019 3:25pm Height 67.5 inches 5'7.50" Weight 248.12 lb Heart Rate 84 /min BP Systolic Sitting 118 mmHg BP Diastolic Sitting 76 mmHg Body Temperature 97.5 F O2 % BldC Oximetry 96 % BMI (Body Mass Index) 38.3 kg/m2 Results Test Acquired Date Facility Test Result H/L Range Note Laboratory test 08/20/2019 [facility] C Reactive 1.10 mg/L Normal <8.[address] [place] [address] [phone] Erythrocyte Sed Rate 16 mm/Hr Normal 0-19 Cyclic Citrullinated Pep Igg <15.6 U 1 Rheumatoid Factor < 10 IU/mL Normal <15 Vitamin D Total 25(Oh) 33.9 ng/mL Normal 20-50 2 Tick-Borne Panel 08/20/2019 [facility] Babesia Negative Negative PCR Blood [address] [place] [address] [phone] Babesia ducani Negative Negative Babesia divergens/Mo-1 Negative Negative 3 Anaplasma phagocytophilum Negative Negative Ehrlichia chaffeensis Negative Negative Ehrlichia ewingii/canis Negative Negative Ehrlichia muris eauclairensis Negative Negative 4 B. miyamotoi PCR, B Negative Negative 5 Laboratory test 08/20/2019 [facility] Miscellaneous Test See Comment [address] [place] [address] [phone] Urine Culture And 08/13/2019 [facility] Urine Culture SEE RESULT [address] [place] [address] [phone] Ua Routine 08/13/2019 [employer] [facility] Ua Specific 1.000 [place] Ua PH 8 Ua Color yellow Ua Appera clear Ua WBC trace Ua Protein negative Ua Glucose normal Ua Ketones negative Ua Bilirubin negative Ua Urobilinogen normal Ua Nitrite negative Ua Occult Blood negative CBC Auto 03/13/2019 [facility] White Blood 6.5 10^3/uL Normal 3.5-10.[address] [place] [address] [phone] Red Blood Count 4.56 10^6/uL Normal 3.70-4.87 Hemoglobin 13.8 g/dL Normal 12.0-16.0 Hematocrit 41 % Normal 35-47 Mean Corpuscular Volume 90 fL Normal 80-97 Mean Corpuscular Hemoglobin 30 pg Normal 27-31 Mean Corpuscular HGB Conc 34 g/dL Normal 31-36 Red Cell Distribution Width 13 % Normal 10.5-15 Platelet Count 243 10^3/uL Normal 150-450 Mean Platelet Volume 7.3 fL Low 7.4-10.4 Abs Neutrophils 4.9 10^3/uL Normal 1.5-7.7 Abs Lymphocytes 1.1 10^3/uL Normal 1.0-4.8 Abs Monocytes 0.5 10^3/uL Normal 0-0.8 Abs Eosinophils 0.0 10^3/uL Normal 0-0.6 Abs Basophils 0.0 10^3/uL Normal 0-0.2 Abs Nucleated RBC 0.0 10^3/uL Granulocyte % 75.9 % Lymphocyte % 16.2 % Monocyte % 7.0 % Eosinophil % 0.5 % Basophil % 0.4 % Nucleated Red Blood Cells % 0.0 Laboratory test 03/13/2019 [facility] Lactic Acid 0.8 mmol/L Normal 0.5-2.0 [address] [place] [address] [phone] Comp Metabolic 03/13/2019 [facility] Sodium 136 mmol/L Normal 135-145 Panel [address] [place] [address] [phone] Potassium 3.7 mmol/L Normal 3.5-5.0 Chloride 105 mmol/L Normal 101-111 Co2 Carbon Dioxide 25 mmol/L Normal 22-32 Anion Gap 6 mmol/L Normal 2-11 Glucose 105 mg/dL High 70-100 Blood Urea Nitrogen 11 mg/dL Normal 6-24 Creatinine 0.67 mg/dL Normal 0.51-0.95 BUN/Creatinine Ratio 16.4 Normal 8-20 Calcium 9.4 mg/dL Normal 8.6-10.3 Total Protein 6.7 g/dL Normal 6.4-8.9 Albumin 4.2 g/dL Normal 3.2-5.2 Globulin 2.5 g/dL Normal 2-4 Albumin/Globulin Ratio 1.7 Normal 1-3 Total Bilirubin 0.40 mg/dL Normal 0.2-1.0 Alkaline Phosphatase 46 U/L Normal 34-104 Alt 14 U/L Normal 7-52 Ast 17 U/L Normal 13-39 Egfr Non- 96.1 >60 Egfr 116.2 >60 9 Laboratory test 03/13/2019 [facility] Magnesium 2.2 mg/dL Normal 1.9-2.7 finding [address] [place] [address] [phone] Troponin-I (TnI) 0.00 ng/mL <0.04 10 TSH (Thyroid Stim Horm) 1.84 mcIU/mL Normal 0.34-5.60 Urinalysis Profile 03/13/2019 [facility] Urine Color Straw [address] [place] [address] [phone] Urine Appearance Clear Urine Specific [place] 1.009 Low 1.010-1.030 Urine pH 8.0 Normal 5-9 Urine Urobilinogen Negative Negative Urine Ketones 1+ Abnormal Negative Urine Protein Negative Negative Urine Leukocytes Negative Negative Urine Blood Negative Negative Urine Nitrite Negative Negative Urine Bilirubin Negative Negative Urine Glucose Negative Negative 1 REFERENCE VALUE <20.0 (Negative) Test Performed by: [facility] [address] [place] [address] Certified Physician Assistant: Dave Red M.D. Ph.D.; CLIA# [id number] 2 Total 25-Hydroxyvitamin D2 and D3 (25-OH-VitD) <10 ng/mL (severe deficiency) 10-19 ng/mL (mild to moderate deficiency) 20-50 ng/mL (optimum levels) 51-80 ng/mL (increased risk of hypercalciuria) >80 ng/mL (toxicity possible) 3 ADDITIONAL INFORMATION This test was developed and its performance characteristics determined by [facility] in a manner consistent with CLIA requirements. This test has not been cleared or approved by the U.S. Food and Drug Administration. 4 ADDITIONAL INFORMATION This test was developed and its performance characteristics determined by [facility] in a manner consistent with CLIA requirements. This test has not been cleared or approved by the U.S. Food and Drug Administration. 5 ADDITIONAL INFORMATION This test was developed and its performance characteristics determined by [facility] in a manner consistent with CLIA requirements. This test has not been cleared or approved by the U.S. Food and Drug Administration. Test Performed by: [facility] - [address] [address] Certified Physician Assistant: Dave Red M.D. Ph.D.; CLIA# [id number] 6 Test Result Flag Unit RefValue Lyme Disease Serology, S Negative Negative No evidence of antibodies to B. burgdorferi detected. False negative results may occur in recently infected patients (<=2 weeks) due to low or undetectable antibody levels to B. burgdorferi. If recent exposure is suspected, a second sample should be collected and tested in 2-4 weeks. Test Performed by: [facility] [address] [place] [address] Certified Physician Assistant: Dave Red M.D. Ph.D.; CLIA# [id number] 7 SEE RESULT BELOW Name: TARA CALL : [address]: Loida Jesus NP Acct: [id number] Unit: [id number] AGE: 44 Location: [facility] Re08/13/19 SEX: F Status: REG REF SPEC: [id number] ERIK: 08/13/19-1112 [facility] [address]: Loida Jesus NP REQ: [id number] RECD: 08/13/195 STATUS: COMP _ S[facility]: Urine Culture COMMENTS: [id number] Urine Source: Random Procedure Result Reported Site Urine Culture Final 08/14/19- 1227 ML No Growth (<1,000 CFU/mL) * ML - Main Lab . END OF REPORT DEPARTMENT OF PATHOLOGY, [address] [place] [address] David Noe M.D. Director [facility] # [id number] 8 [facility] Severe Sepsis and Septic Shock Management Bundle Measure requires all lactic acids initially measuring >2.0 mmol/L be repeated. 9 Because ethnic data is not always readily [...] 15-29 5 Kidney failure <15 (or dialysis) 10 Troponin-I testing on Plasma Separator Tubes (PST) has a known false positive rate of 0.20-0.40%. All positive troponins reflex immediately to secondary confirmatory testing. Using the [employer] Access Immunoassay systems, the 99th percentile upper reference limit was demonstrated to be < 0.03 ng/mL. Procedures Date Code Description Status 06/02/2019 [id number] Mammogram Completed 12/09/2018 [id number] Mammogram Completed 09/06/2015 [id number] Mammogram Completed 07/12/2009 [id number] Mammogram Completed Medical Devices Description No Information Available Encounters Type Date Location Provider Dx Diagnosis Office Visit 08/28/2019 [facility] Loida Jesus, M77.01 Medial 3:20p Medicine - [facility] N.P. epicondylitis, right elbow R53.83 Other fatigue Office Visit 08/13/2019 11:00a [facility] Loida Jesus, R21 Rash and other Medicine - [facility] N.P. nonspecific skin eruption J01.90 Acute sinusitis, unspecified R39.15 Urgency of urination R35.0 Frequency of micturition Z68.37 Body mass index (BMI) 37.0-37.9, adult Office Visit 06/10/2019 1:40p [facility] Loida Jesus, H69.90 Unspecified Medicine - N.P. Eustachian tube Ccmob disorder, unspecified ear J01.90 Acute sinusitis, unspecified Office Visit 06/09/2019 12:00p [facility] Andres Villa, R51 [facility] N.PXiomara R42 Dizziness and giddiness Office Visit 03/19/2019 9:40a [facility] Loida Jesus, H81.10 Benign paroxysmal Medicine - N.P. vertigo, C[facility] unspecified ear R21 Rash and other nonspecific skin eruption Assessments Date Code Description Provider 09/07/2019 R53.83 Other fatigue Andres Villa N.P. 09/07/2019 R51 Headache Andres Villa N.P. 09/07/2019 H81.10 Benign paroxysmal vertigo, unspecified ear Andres Villa N.P. 09/07/2019 R20.2 Paresthesia of skin Andres Villa N.P. 08/28/2019 M77.01 Medial epicondylitis, right elbow Loiad Jesus, N.P. 08/28/2019 R53.83 Other fatigue Loida Basilian, N.P. 08/13/2019 R21 Rash and other nonspecific skin eruption Loida Cuin, N.P. 08/13/2019 J01.90 Acute sinusitis, unspecified Loida Basilian, N.P. 08/13/2019 R39.15 Urgency of urination Loida Jesus, N.P. 08/13/2019 R35.0 Frequency of micturition Loida Basilian, N.P. 08/13/2019 Z68.37 Body mass index (BMI) 37.0-37.9, adult Loida Jesus, N.P. 06/10/2019 H69.90 Unspecified Eustachian tube disorder, Loida Jesus, N.P. unspecified ear 06/10/2019 J01.90 Acute sinusitis, unspecified Loida Jesus, N.P. 06/09/2019 R51 Headache Andres Villa, N.P. 06/09/2019 R42 Dizziness and giddiness Andres Villa, N.P. 03/19/2019 H81.10 Benign paroxysmal vertigo, unspecified ear Loida Jesus, N.P. 03/19/2019 R21 Rash and other nonspecific skin eruption Loida Jesus, N.P. Plan of Treatment Future Appointment(s):11/23/2019 4:00 pm - Andres Villa N.P. at [facility]09/15/2019 8:00 am - Carlos Gallagher MD at [facility] at V[facility]jsw8209/24/2019 10:20 am - Farhad Bray MD at [facility] Pdeehekbsur33 /18/2019 - Andres Villa, N.P.R53.83 Other fatigueNew Orders:Sleep Study, Ordered: 09/07/19R51 MlpjbqslN46.10 Benign paroxysmal vertigo, unspecified earR20.2 Paresthesia of skinNew Orders:EMG w/Nerve Conduct Study, Upper, Ordered : 09/07/19Follow up:8 weeks call after your emg to discuss results, Functional Status Description No Information Available Mental Status Description No Information Available Referrals Refer to Reason for Referral Status Appt Date Carlos Gallagher MD Patient with right elbow pain, worse with Sent 2018 activity. Referred for evaluation and treatment. [address] [place] [address] [phone] Nikia Rao MD Patient with pruritic rash, referred for Sent 09/24/2019 evaluation and treatment. [address] [facility], [address] [place] [id number] [phone] [facility] Patient with BMI over 37 has tried Sent 11/2018 multiple diets and has not been able to lose weight. She is interested in bariatric surgery. Is referred for evaluation. Thank you for seeing this very pleasant patient. [address] [facility] [address] [place] [address] [phone]
--- OUTSIDE RECORDS SUMMARY | 2019-09-27 09:58 | XMS REPORT | Continuity of Care Document ---
:1975 External Reference #:[id number] Author Name Loida Jesus N.P. (transmitted by agent of provider Kenyatta Castillo) Address [address], [place] [address] Care Team Providers Name Role Phone Yuki Carmichael MD - Obstetrics & Care Team Information Icer Machine Gynecology Emma Alvarez MD - Internal Care Team Information Icer Machine Medicine Problems Active Problems Provider Date Asthma without status asthmaticus Nasrin Cervantes M.D. Onset: 10/30/2011 Depressive disorder Loida Jesus N.P. Onset: 02/01/2012 Premature beats Chencho Rodriguez M.D., [facility], Onset: 02/08/2016 FASNC Chest pain Chencho Rodriguez M.D., [facility], Onset: 02/08/2016 FASNC Palpitations Chencho Rodriguez M.D., [facility], Onset: 02/08/2016 FASNC Headache Keyshawn Feliz M.D. Onset: 10/17/2018 Syringomyelia and syringobulbia Keyshawn Feliz M.D. Onset: 10/17/2018 Chiari malformation Keyshawn Feliz M.D. Onset: 10/17/2018 Social History Type Date Description Comments Sex Unknown Tobacco Use Start: Unknown End: Former Cigarette Smoker Unknown Smoking Status Reviewed: 08/28/19 Former Cigarette Smoker ETOH Use Denies alcohol [...] one by mouth every 3tabs J01.90 Loida Jesus, 08/13/2019 150mg 3 days for 3 doses [...] needed Ventolin HFA 1 to 2 inhalations 1idanis Carter 12/31/2011 every 4 hours as Asim [...] CPT Code Status Date Vaccine Lot # [id number] Given 05/25/2013 Measles Mumps And Rubella MMR [id number] Given 12/31/2011 Pneumonia Vaccine [id number] Given 12/31/2011 Tdap - Tetanus/Diptheria/Acellular Pertussis [id number] Vital Signs Date Vital Result Comment 08/28/2019 3:25pm Height 67.5 inches 5'7.50" Weight 248.12 lb Heart Rate 84 /min BP Systolic Sitting 118 mmHg BP Diastolic Sitting 76 mmHg Body Temperature 97.5 F O2 % BldC Oximetry 96 % BMI (Body Mass Index) 38.3 kg/m2 08/13/2019 10:59am Height 67.5 inches 5'7.50" Weight 242.00 lb Heart Rate 87 /min BP Systolic 117 mmHg BP Diastolic 76 mmHg Body Temperature 97.9 F O2 % BldC Oximetry 97 % BMI (Body Mass Index) 37.3 kg/m2 Results Test Acquired Date Facility Test Result H/L Range Note Laboratory test 08/20/2019 [facility] C Reactive 1.10 mg/L Normal <8.[address] [place] [address] [phone] Erythrocyte Sed Rate 16 mm/Hr Normal 0-19 Cyclic Citrullinated Pep Igg <15.6 U 1 Rheumatoid Factor < 10 IU/mL Normal <15 Vitamin D Total 25(Oh) 33.9 ng/mL Normal 20-50 2 Tick-Borne Panel 08/20/2019 [facility] Babesia Negative Negative PCR Blood [address] [place] [address] [phone] Babesia ducani Negative Negative Babesia divergens/Mo-1 Negative Negative 3 Anaplasma phagocytophilum Negative Negative Ehrlichia chaffeensis Negative Negative Ehrlichia ewingii/canis Negative Negative Ehrlichia muris eauclairensis Negative Negative 4 B. miyamotoi PCR, B Negative Negative 5 Laboratory test 08/20/2019 [facility] Miscellaneous Test See Comment [address] [place] [address] [phone] Urine Culture And 08/13/2019 [facility] Urine Culture SEE RESULT [address] [place] [address] [phone] Ua Routine 08/13/2019 [employer] In [facility] Ua Specific 1.000 [place] Ua PH 8 Ua Color yellow Ua Appera clear Ua WBC trace Ua Protein negative Ua Glucose normal Ua Ketones negative Ua Bilirubin negative Ua Urobilinogen normal Ua Nitrite negative Ua Occult Blood negative CBC Auto 03/13/2019 [facility] White Blood 6.5 10^3/uL Normal 3.5-10.[address] [place] [address] [phone] Red Blood Count 4.56 10^6/uL Normal 3.70-4.87 [...] Blood Cells % 0.0 Laboratory test 03/13/2019 [facility] Lactic Acid 0.8 mmol/L Normal 0.5-2.0 8 finding [address] [place] [address] [phone] Comp Metabolic 03/13/2019 [facility] Sodium 136 mmol/L Normal 135-145 Panel [address] [place] [address] [phone] Potassium 3.7 mmol/L Normal 3.5-5.0 Chloride 105 [...] Egfr 116.2 >60 9 Laboratory test 03/13/2019 [facility] Magnesium 2.2 mg/dL Normal 1.9-2.7 finding [address] [place] [address] [phone] Troponin-I (TnI) 0.00 ng/mL <0.04 10 TSH (Thyroid Stim Horm) 1.84 mcIU/mL Normal 0.34-5.60 Urinalysis Profile 03/13/2019 [facility] Urine Color Straw [address] [place] [address] [phone] Urine Appearance Clear Urine Specific [place] 1.009 Low 1.010-1.030 Urine pH 8.0 Normal 5-9 Urine Urobilinogen Negative Negative Urine Ketones 1+ Abnormal Negative Urine Protein Negative Negative Urine Leukocytes Negative Negative Urine Blood Negative Negative Urine Nitrite Negative Negative Urine Bilirubin Negative Negative Urine Glucose Negative Negative 1 REFERENCE VALUE <20.0 (Negative) Test Performed by: [facility] [address] [place] [address] Portfolio Lead: Dave Red M.D. Ph.D.; CLIA# [id number] 2 Total 25-Hydroxyvitamin D2 and D3 (25-OH-VitD) <10 ng/mL (severe deficiency) 10-19 ng/mL (mild to moderate deficiency) 20-50 ng/mL (optimum levels) 51-80 ng/mL (increased risk of hypercalciuria) >80 ng/mL (toxicity possible) 3 ADDITIONAL INFORMATION This test was developed and its performance characteristics determined by [facility] in a manner consistent with CLIA requirements. This test has not been cleared or approved by the U.S. Food and Drug Administration. 4 ADDITIONAL INFORMATION This test was developed and its performance characteristics determined by [facility] in a manner consistent with CLIA requirements. This test has not been cleared or approved by the U.S. Food and Drug Administration. 5 ADDITIONAL INFORMATION This test was developed and its performance characteristics determined by [facility] in a manner consistent with CLIA requirements. This test has not been cleared or approved by the U.S. Food and Drug Administration. Test Performed by: [facility] [place] - [address] [address] Portfolio Lead: Dave Red M.D. Ph.D.; CLIA# [id number] 6 Test Result Flag Unit RefValue Lyme Disease Serology, S Negative Negative No evidence of antibodies to B. burgdorferi detected. False negative results may occur in recently infected patients (<=2 weeks) due to low or undetectable antibody levels to B. burgdorferi. If recent exposure is suspected, a second sample should be collected and tested in 2-4 weeks. Test Performed by: [facility] [address], [place] [address] Portfolio Lead: Dave Red M.D. Ph.D.; IA# [id number] 7 SEE RESULT BELOW Name: TARA CALL : [address]: Loida Jesus NP Acct: [id number] Unit: [id number] AGE: 44 Location: [facility] Re08/13/19 SEX: F Status: REG REF SPEC: [id number] ERIK: 08/13/[address] [facility] DR: Loida Jesus NP REQ: [id number] RECD: 08/13/197970 STATUS: COMP _ SOURCE: URINE [facility]: ORDERED: Urine Culture COMMENTS: [id number] Urine Source: Random Procedure Result Reported Site Urine Culture Final 08/14/19- 1227 ML No Growth (<1,000 CFU/mL) * ML - Main Lab . END OF REPORT DEPARTMENT OF PATHOLOGY, [address] [place] [address] David Noe M.D. Director [facility] # [id number] 8 [facility] Severe Sepsis and Septic Shock Management [...] immediately to secondary confirmatory testing. Using the [employer] DxI 800 Access Immunoassay systems, the 99th percentile upper reference limit was demonstrated to be < 0.03 ng/mL. Procedures Date Code Description Status 06/02/2019 [id number] Mammogram Completed 12/09/2018 [id number] Mammogram Completed 09/06/2015 [id number] Mammogram Completed 07/12/2009 [id number] Mammogram Completed Medical Devices Description No Information Available Encounters Type Date Location Provider Dx Diagnosis Office Visit 08/13/2019 [facility] Internal Loida Jesus, R21 Rash and other 11:00a Medicine - Ccmob N.P. nonspecific skin eruption J01.90 Acute sinusitis, unspecified R39.15 Urgency of urination R35.0 Frequency of micturition Z68.37 Body mass index (BMI) 37.0-37.9, adult Office Visit 06/10/2019 1:40p [facility] Internal Loida Jesus, H69.90 Unspecified Medicine - N.P. Eustachian tube Ccmob disorder, unspecified ear J01.90 Acute sinusitis, unspecified Office Visit 06/09/2019 12:00p [facility] N.P. R42 Dizziness and giddiness Office Visit 03/19/2019 9:40a [facility] Internal Loida Jesus, H81.10 Benign paroxysmal Medicine - N.P. vertigo, Ccmob unspecified ear R21 Rash and other nonspecific skin eruption Assessments Date Code Description Provider 08/28/2019 M77.01 Medial epicondylitis, right elbow Loida Jesus, N.P. 08/28/2019 R53.83 Other fatigue Loida Jesus, N.P. 08/13/2019 R21 Rash and other nonspecific skin eruption Loida Jesus, N.P. 08/13/2019 J01.90 Acute sinusitis, unspecified Loida Jesus, N.P. 08/13/2019 R39.15 Urgency of urination Loida Jesus, N.P. 08/13/2019 R35.0 Frequency of micturition Loida Jesus, N.P. 08/13/2019 Z68.37 Body mass index (BMI) [...] Loida Jesus, N.P. Plan of Treatment Future Appointment(s):09/24/2019 10:20 am - Farhad Bray MD at [facility] Fvepdxhpgex11/08/2019 - Loida Jesus N.P.M77.01 Medial epicondylitis, right elbowNew Therapy:Physical TherapyComments:For your elbow pain I have referred you for physical therapy and to Dr Gallagher.Referral:Carlos Gallagher MD, Surgery, Hand UdibljlkqkJ10.83 Other fatigueComments:To evaluate your fatigue I have ordered a series of blood test. I will contact you with your results. Functional Status Description No Information Available Mental Status Description No Information Available Referrals Refer to Reason for Referral Status Appt Date Carlos Gallagher MD Patient with right elbow pain, worse with Sent 00/00/ 0000 activity. Referred for evaluation and treatment. [address] [id number] [phone] Nikia Rao MD Patient with pruritic rash, referred for Sent 09/24/2019 evaluation and treatment. [address], [place] [address] [phone] [facility] Patient with BMI over 37 has tried Sent 00/ multiple diets and has not been able to lose weight. She is interested in bariatric surgery. Is referred for evaluation. Thank you for seeing this very pleasant patient. [address] [place] [address] [phone]
--- OUTSIDE RECORDS SUMMARY | 2019-09-27 09:59 | XMS REPORT | Continuity of Care Document ---
:1975 External Reference #:[id number] Author Name Loida Jesus N.P. (transmitted by agent of provider Helen Wilcox) Address [address], [place] [address] Care Team Providers Name Role Phone Yuki Carmichael MD - Obstetrics & Care Team Information Marketing Program Manager Gynecology Emma Alvarez MD - Internal Care Team Information Marketing Program Manager Medicine Problems Active Problems Provider Date Asthma without status asthmaticus Nasrin Cervantes M.D. Onset: 10/30/2011 Depressive disorder Loida Jesus N.P. Onset: 02/01/2012 Premature beats Chencho Rodriguez M.D., [facility], Onset: 02/08/2016 FASNC Chest pain Chencho Rodriguez M.D., [facility], Onset: 02/08/2016 FASNC Palpitations Chencho Rodriguez M.D., [facility], Onset: 02/08/2016 FASNC Headache Keyshawn Feliz M.D. Onset: 10/17/2018 Syringomyelia and syringobulbia Keyshawn Feliz M.D. Onset: 10/17/2018 Chiari malformation Keyshawn Feliz M.D. Onset: 10/17/2018 Social History Type Date Description Comments Sex Unknown Tobacco Use Start: Unknown End: Former Cigarette Smoker Unknown Smoking Status Reviewed: 08/13/19 Former Cigarette Smoker ETOH Use Denies alcohol [...] once or twice N.P. 0.1% Lotion daily Amoxicillin/Clavulan one tablet by 20tabs J01.90 Loida Ann Marie, 08/13/2019 ate Potassium mouth twice daily N.P. for 10 days 875-125mg Tablets Fluconazole one by mouth every 3tabs J01.90 [...] Naproxen take 1 tablet 60tabs M54.5 Loida Ann Marie, 08/13/2017 500mg twice a day as N.P. Tablets needed Ventolin HFA 1 to 2 inhalations 1inhaler Emma 12/31/2011 every 4 hours as Asim Alvarez 108(90Base) mcg/ac needed Aerosol Lorazepam Kalani Rodriguez 0.5mg [facility] [place] Tablets Duloxetine HCL once daily Kalani Rodriguez 30mg [facility] [place] Caps DR Char Vaughan Allergy As needed Unknown 60mg Tablets Breo Ellipta Unknown 200-25mcg/Inh Aerosol Montelukast Sodium 1 po qd 90tabs Unknown 10mg Tablets History Medications Azithromycin two tabs day 6tabs H69.90 Loida Jesus, 06/10/2019 - 250mg one, one daily N.P. 06/20/2019 Tablets till gone Clotrimazole/Betameth apply twice 15gm R21 Loida Jesus, 03/19/2019 - asone Dipropionate daily to three N.P. 06/08/2019 times daily 1-0.05% Cream Reglan Q6H 12tabs Unknown 03/13/2019 - 10mg Tablets 06/08/2019 Antivert Three Times 21tabs Unknown 03/13/2019 - Repack Daily 03/19/2019 12.5mg Tablets Medications Administered in Office Medication SIG Qnty Indications Ordering Provider Date Depomedrol 80MG Cierra Hernandez M.D. 09/02/2015 Injection Immunizations CPT Code Status Date Vaccine Lot # [id number] Given 05/25/2013 Measles Mumps And Rubella MMR [id number] Given 12/31/2011 Pneumonia Vaccine [id number] Given 12/31/2011 Tdap - Tetanus/Diptheria/Acellular Pertussis [id number] Vital Signs Date Vital Result Comment 08/13/2019 10:59am Height 67.5 inches 5'7.50" Weight 242.00 lb Heart Rate 87 /min BP Systolic 117 mmHg BP Diastolic 76 mmHg Body Temperature 97.9 F O2 % BldC Oximetry 97 % BMI (Body Mass Index) 37.3 kg/m2 06/10/2019 2:00pm Height 67.5 inches 5'7.50" Weight 236.38 lb Heart Rate 88 /min BP Systolic 103 mmHg BP Diastolic 70 mmHg Body Temperature 98.5 F O2 % BldC Oximetry 98 % BMI (Body Mass Index) 36.5 kg/m2 Results Test Date Facility Test Result H/L Range Note Ua Routine 08/13/2019 [facility] In House Ua Specific [place] 1.000 Ua PH 8 Ua Color yellow Ua Appera clear Ua WBC trace Ua Protein negative Ua Glucose normal Ua Ketones negative Ua Bilirubin negative Ua Urobilinogen normal Ua Nitrite negative Ua Occult Blood negative CBC Auto 03/13/2019 [facility] White Blood 6.5 10^3/uL Normal 3.5-10.[address] [place] [address] [phone] Red Blood Count 4.56 10^6/uL Normal 3.70-4.87 [...] Blood Cells % 0.0 Laboratory test 03/13/2019 [facility] Lactic Acid 0.8 mmol/L Normal 0.5-2.0 1 finding [address] [place] [address] [phone] Comp Metabolic 03/13/2019 [facility] Sodium 136 mmol/L Normal 135-145 Panel [address] [place] [address] [phone] Potassium 3.7 mmol/L Normal 3.5-5.0 Chloride 105 [...] Egfr Non- 96.1 >60 Egfr 116.2 >60 2 Laboratory test 03/13/2019 [facility] Magnesium 2.2 mg/dL Normal 1.9-2.7 finding [address] [place] [address] [phone] Troponin-I (TnI) 0.00 ng/mL <0.04 3 TSH (Thyroid Stim Horm) 1.84 mcIU/mL Normal 0.34-5.60 Urinalysis Profile 03/13/2019 [facility] Urine Color Straw [address] [place] [address] [phone] Urine Appearance Clear Urine Specific [place] 1.009 Low 1.010-1.030 Urine pH 8.0 Normal 5-9 Urine Urobilinogen Negative Negative Urine Ketones 1+ Abnormal Negative Urine Protein Negative Negative Urine Leukocytes Negative Negative Urine Blood Negative Negative Urine Nitrite Negative Negative Urine Bilirubin Negative Negative Urine Glucose Negative Negative 1 [facility] Severe Sepsis and Septic Shock Management Bundle Measure requires all lactic acids initially measuring >2.0 mmol/L be repeated. 2 Because ethnic data is not always readily [...] 15-29 5 Kidney failure <15 (or dialysis) 3 Troponin-I testing on Plasma Separator Tubes (PST) has a known false positive rate of 0.20-0.40%. All positive troponins reflex immediately to secondary confirmatory testing. Using the [employer] DxI 800 Access Immunoassay systems, the 99th percentile upper reference limit was demonstrated to be < 0.03 ng/mL. Procedures Date Code Description Status 06/02/2019 [id number] Mammogram Completed 12/09/2018 [id number] Mammogram Completed 09/06/2015 [id number] Mammogram Completed 07/12/2009 [id number] Mammogram Completed Medical Devices Description No Information Available Encounters Type Date Location Provider Dx Diagnosis Office Visit 06/10/2019 [facility] Internal Loida Jesus, H69.90 Unspecified 1:40p Medicine - Ccmob N.P. Eustachian tube disorder, unspecified ear J01.90 Acute sinusitis, unspecified Office Visit 06/09/2019 12:00p [facility], R51 [facility] N.P. R42 Dizziness and giddiness Office Visit 03/19/2019 9:40a [facility] Internal Loida Jesus, H81.10 Benign paroxysmal Medicine - N.P. vertigo, Ccmob unspecified ear R21 Rash and other nonspecific skin eruption Assessments Date Code Description Provider 08/13/2019 N39.0 Urinary tract infection, site not specified Loida Jesus, N.P. 08/13/2019 R21 Rash and other nonspecific skin eruption Loida Jesus, N.P. 08/13/2019 J01.90 Acute sinusitis, unspecified Loida Basilian, N.P. 08/13/2019 Z68.37 Body mass index (BMI) 37.0-37.9, adult Loida Jesus, N.P. 06/10/2019 H69.90 Unspecified Eustachian tube disorder, Loida Jesus, N.P. unspecified ear 06/10/2019 J01.90 Acute sinusitis, unspecified Loida Jesus, N.P. 06/09/2019 R51 Headache Andres Villa N.P. 06/09/2019 R42 Dizziness and giddiness Andres Villa, N.P. 03/19/2019 H81.10 Benign paroxysmal vertigo, unspecified ear Loida Jesus, N.P. 03/19/2019 R21 Rash and other nonspecific skin eruption Loida Jesus, N.P. Plan of Treatment Future Appointment(s):09/07/2019 4:00 pm - Andres [facility] N.PXiomara at [facility]08/13/2019 - Loida Jesus, N.P.N39.0 Urinary tract infection, site not specifiedComments:It's not clear that you have a urinary tract infection. I have sent your urine for culture. The office will contact you with your results.R21 Rash and other nonspecific skin eruptionNew Medication :Triamcinolone Acetonide 0.1 % - apply to dry skin once or twice dailyComments: I am referring you to a improvement auditor to evaluate your rash. To help you with the irritation and itching I have prescribed Triamcinolone lotion. Apply this 2 to 3 times daily. Continue to take your antihistamine.Referral:Nikia Rao MD, HthjmyahnfaG97.90 Acute sinusitis, unspecifiedNew Medication:Amoxicillin/ Clavulanate Potassium 875-125 mg - one tablet by mouth twice daily for 10 daysFluconazole 150 mg - one by mouth every 3 days for 3 dosesComments:For your sinus infection: I sent a prescription for Augmentin to the pharmacy. Take 1 tablet every 12 hours until they are gone. Take this with a little food. Use your steroid nasal spray, 2 inhalations once daily until you are feeling better. If your symptoms do not improve call the office.Z68.37 Body mass index ( BMI) 37.0-37.9, adultComments:I have referred you to the [facility] to discuss possible weight loss surgery.Referral:[facility] [employer], Anesthesiology Tech Functional Status Description No Information Available Mental Status Description No Information Available Referrals Refer to Reason for Referral Status Appt Date Nikia Rao MD Patient with pruritic rash, referred for Sent evaluation and treatment. [address], [place] [address] [phone] [facility] [employer] Patient with BMI over 37 has tried [employer] multiple diets and has not been able to lose weight. She is interested in bariatric surgery. Is referred for evaluation. Thank you for seeing this very pleasant patient. [address] [facility] [address] [place] [address] [phone]
[2019-09-27 10:03] VITALS: BP 120/83
--- NOTE | 2019-09-27 10:18 | UC ---
Throat Pain/Nasal Maciel HPI - HPI Summary HPI Summary: Pt presents with c/o body aches, cough, ST, chest congestion, sinus pressure and pain, X 1 day. Pt thinks she may have strep throat or sinus infection. - History of Current Complaint Stated Complaint: HEADACHE SORE THROAT Time Seen by Provider: 09/27/19 09:57 Hx Obtained From: Patient Hx Last Menstrual Period: OVER A YEAR AGO, HAD UTERINE ABLATION ?: No Onset/Duration: Sudden Onset, Lasting Days, Still Present Severity: Moderate Pain Intensity: 4 Cough: Productive Associated Signs & Symptoms: Positive: Dysphagia, Hoarseness, Sinus Discomfort, Fever - subjective - Epiglottits Risk Factors Epiglottis Risk Factors: Sudden Onset - Allergies/Home Medications Allergies/Adverse Reactions: Allergies Allergy/AdvReac Type Severity Reaction Status Date / Time Serotonin 5HT-3 Antagonists Allergy Fatigue Verified 09/27/19 10:04 latex AdvReac Itching Verified 09/27/19 10:04 ANESTHESIA Allergy Vomiting Uncoded 09/27/19 10:04 Home Medications: Home Medications Meclizine TAB* [Antivert 12.5 TAB*] 25 mg PO TID PRN 09/27/19 [History] Metoclopramide TAB* [Reglan TAB*] 10 mg PO Q6H PRN 09/27/19 [History Confirmed 09/27/19] PMH/Surg Hx/FS Hx/Imm Hx Previously Healthy: Yes - Surgical History Surgical History: Yes Surgery Procedure, Year, and Place: 1979 T&A, 97 & 00, 2002 L5-S1 discectomy, 09/01 uterine ablation, hysterectomy 01/2017 - Family History Known Family History: Negative: Diabetes - Social History Occupation: Employed Full-time Lives: With Family Alcohol Use: Rare Substance Use Type: None Smoking Status (MU): Former Smoker Type: Cigarettes Amount Used/How Often: 2011 Have You Smoked in the Last Year: Yes - Immunization History Vaccination Up to Date: Yes Review of Systems All Other Systems Reviewed And Are Negative: Yes Constitutional: Positive: Fever, Chills, Fatigue Skin: Positive: Negative Eyes: Positive: Negative ENT: Positive: Sore Throat, Sinus Congestion, Sinus Pain/Tenderness Respiratory: Positive: Cough Cardiovascular: Positive: Negative Gastrointestinal: Positive: Negative Genitourinary: Positive: Negative Motor: Positive: Negative Neurovascular: Positive: Negative Musculoskeletal: Positive: Myalgia Neurological: Positive: Headache Psychological: Positive: Negative Is Patient Immunocompromised?: No Physical Exam Triage Information Reviewed: Yes Appearance: Ill-Appearing Vital Signs: Initial Vital Signs Temp 98.3 F 09/27/19 09:58 Pulse 76 09/27/19 09:58 Resp 18 09/27/19 09:58 BP 120/83 09/27/19 09:58 Pulse Ox 99 09/27/19 09:58 Vital Signs Reviewed: Yes Eye Exam: Normal ENT: Positive: Nasal congestion, Sinus tenderness Dental Exam: Normal Neck exam: Normal Respiratory Exam: Normal Cardiovascular Exam: Normal Musculoskeletal Exam: Normal Neurological Exam: Normal Psychological Exam: Normal Skin Exam: Normal Throat Pain/Nasal Course/Dx - Differential Dx/Diagnosis Differential Diagnosis/HQI/PQRI: Influenza, Pharyngitis, Sinusitis, Tonsillitis , URI Provider Diagnosis: Sinusitis Discharge ED - Sign-Out/Discharge Documenting (check all that apply): Patient Departure All imaging exams completed and their final reports reviewed: No Studies - Discharge Plan Condition: Stable Disposition: HOME Prescriptions: Albuterol 2.5MG/3ML (0.083%)* [Ventolin 2.5 MG/3 ML NEB.FRANCESCA*] 2.5 mg INH Q6H PRN #1 neb.francesca PRN Reason: Wheezing Amoxicillin PO (*) [Amoxicillin 875 MG (*)] 875 mg PO Q12H #20 tab Guaifenesin/Pseudoephedrne HCl [Mucinex D ER 600-60 mg Tablet] 1 each PO Q12H # 14 tab.er.12h predniSONE TAB* [Deltasone 10 MG TAB*] 30 mg PO DAILY #12 tab Patient Education Materials: Sinusitis (ED), Acute Cough (ED) Forms: *Work Release Referrals: Loida Jesus NP [Primary Care Provider] - If Needed - Billing Disposition and Condition Condition: STABLE Disposition: Home
== END 2019-09-27 10:33 | disposition home or self-care (01) ==
LOC: UCCORT 09:50
DX: J32.9 Chronic sinusitis, unspecified (principal); J02.9 Acute pharyngitis, unspecified; R53.83 Other fatigue; M79.10 Myalgia, unspecified site; Z91.040 Latex allergy status; Z88.4 Allergy status to anesthetic agent; Z88.8 Allergy status to other drugs, medicaments and biological substances; Z87.891 Personal history of nicotine dependence
CPT/HCPCS: 99212; G0463